=== PATIENT | male | born 1950 | race Caucasian/White ===

== ENCOUNTER 2025-04-06 18:57 | Emergency (ER) | payer OTHER, SELFPAY ==
[2025-04-06] VITALS (11 sets, daily range): BP systolic 111–142; BP diastolic 56–79; PULSE 75–96; RESP 12–20; TEMP 36.6; O2SAT 95–100; BMI 17.3
--- NOTE | 2025-04-06 19:19 | DI.RAD.S_ITS ---
PROCEDURE: XR CHEST 1V INDICATIONS: Chest Pain TECHNIQUE: One view of the chest was acquired. COMPARISON: None. FINDINGS: Surgical changes and devices: None. Lungs and pleura: Lungs are clear. No pleural effusions or pneumothorax. Mediastinum: Small amount of air in the thoracic esophagus. Mediastinal contours otherwise appear normal. Heart size is normal. Bones and chest wall: No suspicious bony lesions. Overlying soft tissues appear unremarkable. IMPRESSION: Mildly patulous thoracic esophagus. Otherwise, no acute cardiothoracic process. Dictated by: Darren Sterling M.D. on 04/06/2025 at 20:02 Approved by: Darren Sterling M.D. on 04/06/2025 at 20:03
--- NOTE | 2025-04-06 19:19 | EKG_ITS ---
[facility] [address] [address] Test Date: 2025-04-06 Pat Name: Celestino De La Torre Department: [facility] Room: Gender: Male [employer]: : 1950 Requested By: Order Number: [id number] Reading MD: Anthony Hi MD Measurements Intervals [place] Rate: 100 P: 49 MT: 172 QRS: 15 QRSD: 86 T: 79 QT: 356 QTc: 459 Interpretive Statements Normal sinus rhythm Electronically Signed On 04-07-2025 6:52:21 PDT by Anthony Hi MD
[2025-04-06 19:41] LABS: Add Manual Diff / Slide Review NO; Basophils Absolute Auto 100 /uL (0-100); Basophils Percent Auto 1.5 % (0-2); Eosinophils Absolute Auto 300 /uL (0-450); Eosinophils Percent Auto 5.3 % (2-4); Hematocrit 28.6 % (41-53); Hemoglobin 9.6 g/dL (13.5-17.5); Lymphocytes Absolute Auto 1800 /uL (1100-4500); Lymphocytes Percent Auto 27.3 % (25-40); Mean Corpuscular HGB Conc 33.7 % (30-36); Mean Corpuscular Hemoglobin 30.8 PG (26-34); Mean Corpuscular Volume 91.4 fL (80-100); Monocytes Absolute Auto 700 /uL (0-900); Monocytes Percent Auto 10.3 % (3-14); Neutrophils Absolute Auto 3600 /uL (1500-7000); Neutrophils Percent Auto 55.6 % (50-75); Platelet Count 193 X10^3/uL (150-400); Red Blood Cell Count 3.13 X10^6/uL (4.5-5.9); Red Cell Distribution Width 15.1 % (11.6-14.8); White Blood Cell Count 6.5 X10^3/uL (4.5-11.0)
[2025-04-06 19:48] LABS: INR 1.4 (0.9-1.3); Prothrombin Time 15.5 SECONDS (9.4-12.5)
[2025-04-06 19:50] LABS: PTT Partial Thromboplastin Tim 42 SECONDS (25.1-36.5)
[2025-04-06 19:52] LABS: Alanine Aminotransferase 28 IU/L (<50); Albumin 4.2 g/dL (3.5-5.0); Albumin Globulin Ratio 1.4 (1.0-2.8); Alkaline Phosphatase 78 U/L (38-126); Aspartate Aminotransferase 29 IU/L (17-59); BUN Creatinine Ratio 24.2 (6-22); Bilirubin Total 0.3 mg/dL (0.2-1.3); Blood Urea Nitrogen 36 mg/dL (9-20); Calcium 9.6 mg/dL (8.4-10.2); Carbon Dioxide 24 mmol/L (22-32); Chloride 99 mmol/L (98-107); Creatine Kinase 37 U/L (55-170); Estimated Glomerular Filt Rate 48 mL/min (>60); Globulin 2.9 g/dL (1.7-4.1); Glucose 255 mg/dL (70-99); HEMOLYSIS < 15 (0-50); Lactate (Lactic Acid) 2.9 mmol/L (0.7-2.1); Lipase 67 U/L (23-300); Potassium 4.8 mmol/L (3.4-5.1); Sodium 134 mmol/L (137-145); Total Protein 7.1 g/dL (6.3-8.2)
[2025-04-06 20:03] LABS: NT-proBNP (BNP-Adult 18+) 357 pg/mL (<450); Troponin I < 0.012 ng/mL (0.01-0.034)
[2025-04-06 21:12] LABS: Reflexed Lactate in 2 Hours Y
--- NOTE | 2025-04-06 21:36 | EKG_ITS ---
[facility] [address], [place] [address] Test Date: 2025-04-06 Pat Name: Celestino De La Torre Department: [facility] Room: Gender: Male [employer] Scribe: : 1950 Requested By: Order Number: [id number] Reading MD: Anthony Hi MD Measurements Intervals [place] Rate: 94 P: 52 GA: 176 QRS: 27 QRSD: 84 T: 81 QT: 370 QTc: 462 Interpretive Statements Normal sinus rhythm Electronically Signed On 04-07-2025 6:52:21 PDT by Anthony Hi MD
[2025-04-06 22:50] LABS: Lactate 2HR (Lactic Acid Rflx) 2.3 mmol/L (0.7-2.1)
[2025-04-06 23:03] LABS: Troponin I < 0.012 ng/mL (0.01-0.034)
[2025-04-07] VITALS: PULSE 82; O2SAT 97
[2025-04-07 00:01] VITALS: BP 128/82; PULSE 84; O2SAT 96
[2025-04-07 00:15] VITALS: BP 148/58; PULSE 78; RESP 13
--- NOTE | 2025-04-07 00:20 | ED.GENADULT ---
HPI - General Adult General Chief complaint: Dizziness Stated complaint: Dizziness/Recent Infection Time Seen by Provider: 04/07/25 00:20 Source: patient and EMS Mode of arrival: EMS History of Present Illness HPI narrative: 74-year-old male with a past medical history of diabetes, CVA on Eliquis comes into the ED from home via EMS for evaluation of multiple complaints. According to the patient he states that he initially called because he was checking his blood glucose and stated that he was worried that it was high, he states that few weeks ago his blood glucose was unreadable and required evaluation at outside hospital. He states that when he was checked for his blood glucose today it was normal, however according to EMS patient was hypotensive however here patient not hypotensive. He does state that he was feeling slight lightheaded dizziness whenever he stands up but states it has been ongoing for ?several years. Patient states that he did not want to come into the ED but was told that he would ? if he did not come. Denies any other symptoms at this time states that he feels completely normal. States the real reason he only called EMS was because he was worried about his blood sugars. Related Data Allergies Allergy/AdvReac Type Severity Reaction Status Date / Time Penicillins Allergy Verified 04/06/25 19:23 Review of Systems Review of Systems Narrative: General: Elevated blood sugar, Denies fever, chills, weight loss HEENT: Denies headache, eye drainage, eye irritation, head trauma, sore throat, voice change Cardiovascular: Denies any chest pain, palpitations, tachycardia Respiratory: Denies any shortness of breath, cough, wheeze, stridor GI/: Denies any abdominal pain, nausea, vomiting, diarrhea, bright red blood per rectum, melanotic stools, urinary frequency, urinary retention, dysuria, hematuria MSK: Denies any joint pain, muscle pains, swelling Skin: Denies any rashes, lesions, discoloration Neuro: Denies any headache, lightheadedness, dizziness, fainting, weakness Psych: Denies SI/HI Patient History tobacco type: smokeless tobacco Exam Narrative Exam Narrative: General: Cooperative, well-developed, not in acute distress HEENT: Normocephalic, atraumatic, PERRLA, normal sclera, eyelids normal Neck: Active full range of motion, atraumatic Chest: Normal to inspection, negative crepitus, no overlying erythema ecchymosis Respiratory: Normal respiratory effort, not in acute respiratory distress, clear to auscultation bilaterally negative cough, wheeze, tachypnea, rhonchi, rales Cardiology: Regular rate rhythm negative gallop, murmur, rubs GI/: No tenderness to palpation, soft, non rigid, normal to inspection, exam deferred MSK: Full active range of motion in all 4 extremities, atraumatic, no tenderness to palpation of any bony prominences Skin: No rashes or lesions noted Neuro: NIH of 0, Alert awake oriented x3, moves all 4 extremities spontaneously, cranial nerves intact, able to answer all questions appropriately follows commands appropriately Psych: Cooperative, negative suicidal or homicidal ideations Initial Vital Signs Initial Vital Signs: Vital Signs Temperature 97.8 F 04/06/25 19:20 Pulse Rate 93 H 04/06/25 19:20 Respiratory Rate 20 04/06/25 19:20 Blood Pressure 111/65 04/06/25 19:20 Pulse Oximetry 96 04/06/25 19:20 Oxygen Delivery Method Room Air 04/06/25 19:20 Course Orders Ordered: ED Orders 04/06/25 19:19 XR chest 1V Stat EKG-12 Lead Stat RT Consult Eval and Treat NOW 04/06/25 19:32 Complete Blood Count AUTO DIFF Stat Comprehensive Metabolic Panel Stat Lactate (Lactic Acid) Stat Lipase Stat Magnesium Stat NT-proBNP (BNP-Adult 18+) Stat PTT Partial Thromboplastin Jorge Stat Prothrombin Time INR Stat Troponin & CK Cardiac Panel Stat 04/06/25 21:36 EKG-12 Lead Stat 04/06/25 21:44 Troponin I Stat Discontinued Medications Aspirin (Aspirin 81 Mg Chew Tab) 324 mg PO NOW ONE Stop: 04/06/25 19:20 Last Admin: 04/06/25 21:59 Dose: Not Given Documented By: SB Vital Signs Vital signs: Vital Signs - 8 hr 04/06/25 19:20 04/06/25 21:41 04/06/25 21:47 Temperature 97.8 F Pulse Rate 93 H 95 H Respiratory Rate 20 Blood Pressure 111/65 122/75 Pulse Oximetry 96 100 Oxygen Delivery Method Room Air 04/06/25 21:47 04/06/25 22:00 04/06/25 22:00 Temperature Pulse Rate 96 H 83 Respiratory Rate 20 13 Blood Pressure 142/67 H Pulse Oximetry 100 97 Oxygen Delivery Method 04/06/25 22:15 04/06/25 22:15 04/06/25 22:30 Temperature Pulse Rate 82 79 Respiratory Rate 12 Blood Pressure 129/63 Pulse Oximetry 96 98 Oxygen Delivery Method Room Air 04/06/25 22:30 04/06/25 22:45 04/06/25 22:45 Temperature Pulse Rate 86 Respiratory Rate Blood Pressure 116/56 L 126/62 Pulse Oximetry Oxygen Delivery Method 04/06/25 23:00 04/06/25 23:00 04/06/25 23:15 Temperature Pulse Rate 83 Respiratory Rate Blood Pressure 136/79 135/67 Pulse Oximetry 95 Oxygen Delivery Method 04/06/25 23:15 Temperature Pulse Rate 83 Respiratory Rate Blood Pressure Pulse Oximetry 96 Oxygen Delivery Method Room Air Medical Decision Making Differential Diagnosis Differential Diagnosis: ACS, pneumonia, electrolyte abnormality, hyperglycemia, Lab Data 04/06/25 19:32 04/06/25 19:32 Labs: Lab Results 04/06/25 04/06/25 Range/Units 19:32 21:44 WBC 6.5 (4.5-11.0) X10^3/uL RBC 3.13 L (4.5-5.9) X10^6/uL Hgb 9.6 L (13.5-17.5) g/dL Hct 28.6 L (41-53) % MCV 91.4 (80-100) fL MCH 30.8 (26-34) PG MCHC 33.7 (30-36) % RDW 15.1 H (11.6-14.8) % Plt Count 193 (150-400) X10^3/uL Neut % (Auto) 55.6 (50-75) % Lymph % (Auto) 27.3 (25-40) % [place] % (Auto) 10.3 (3-14) % Eos % (Auto) 5.3 H (2-4) % Baso % (Auto) 1.5 (0-2) % Neut # (Auto) 3600 (4847-5353) /uL Lymph # (Auto) 1800 (8691-6705) /uL [place] # (Auto) 700 (0-900) /uL Eos # (Auto) 300 (0-450) /uL Baso # (Auto) 100 (0-100) /uL PT 15.5 H (9.4-12.5) SECONDS INR 1.4 H (0.9-1.3) APTT 42 H (25.1-36.5) SECONDS Sodium 134 L (137-145) mmol/L Potassium 4.8 (3.4-5.1) mmol/L Chloride 99 (98-107) mmol/L Carbon Dioxide 24 (22-32) mmol/L BUN 36 H (9-20) mg/dL Creatinine 1.49 H (0.66-1.25) mg/dL Estimated GFR 48 L (>60) mL/min BUN/Creatinine Ratio 24.2 H (6-22) Glucose 255 H (70-99) mg/dL Lactate 2.9 H 2.3 H (0.7-2.1) mmol/L Calcium 9.6 (8.4-10.2) mg/dL Magnesium 2.0 (1.6-2.3) mg/dL Total Bilirubin 0.3 (0.2-1.3) mg/dL AST 29 (17-59) IU/L ALT 28 (<50) IU/L Alkaline Phosphatase 78 (38-126) U/L Total Creatine Kinase 37 L (55-170) U/L Troponin I < 0.012 < 0.012 (0.01-0.034) ng/mL NT-Pro-B Natriuret Pep 357 (<450) pg/mL Total Protein 7.1 (6.3-8.2) g/dL Albumin 4.2 (3.5-5.0) g/dL Globulin 2.9 (1.7-4.1) g/dL Albumin/Globulin Ratio 1.4 (1.0-2.8) Lipase 67 (23-300) U/L Imaging Data Chest x-ray: Radiologist's Impression: [address] [address] XRay Report Signed Patient: Celestino De La Torre MR#: [id number] : 1950 Acct:[id number] Age/Sex: 74 / M Date of Service: 04/06/25 Loc: ED Accession Number: [id number] Procedure: XR chest 1V Ordering Provider: Celestino Reeder D.O. PROCEDURE: XR CHEST 1V INDICATIONS: Chest Pain TECHNIQUE: One view of the chest was acquired. COMPARISON: None. FINDINGS: Surgical changes and devices: None. Lungs and pleura: Lungs are clear. No pleural effusions or pneumothorax. Mediastinum: Small amount of air in the thoracic esophagus. Mediastinal contours otherwise appear normal. Heart size is normal. Bones and chest wall: No suspicious bony lesions. Overlying soft tissues appear unremarkable. IMPRESSION: Mildly patulous thoracic esophagus. Otherwise, no acute cardiothoracic process. ECG Data Interpretation: Initial EKG interpreted by ED physician sinus 100 beats per minute QTC [address] changes no STEMI Repeat EKG interpreted by ED physician sinus 94 beats per minute QTC [address] changes no STEMI MDM Narrative Medical decision making narrative: 74-year-old male with history of CVA on Eliquis diabetes presents to the emergency department from home from EMS for evaluation of high blood sugars. He states that he called EMS because his glucometer stated that his sugar was unreadable states that a few weeks ago he had similar issues and was sent to outside hospital due to the fact that he had elevated blood sugars. He states that his blood sugars and was normal by EMS but they state that his blood pressure was low, he states that he does have intermittent light-headedness whenever he attempts to stand however he states it has been ongoing for years, he states that he did not want to come into the ED but was told that he would ? if he did not. He is completely asymptomatic at this time. He states that he only called EMS because he wanted to check his blood sugars but they ?forced him to come in patient's lab work imaging unremarkable, patient's glucose 255, however patient not in DKA CO2 normal, EKG nonischemic in nature x2, troponin negative x2, chest x-ray without any acute cardiopulmonary abnormality. Patient was instructed to follow up with primary care and Cardiology in outpatient setting he verbalized understanding of this and agrees to being discharged home with outpatient follow up Discharge Plan Departure Patient Disposition: Home Clinical Impression: Hyperglycemia Instructions: DI for Hyperglycemia -- Adult Activity Restrictions/Additional Instructions: Please follow up with the Cardiology and your primary care doctor in outpatient setting Please read the discharge instructions sheet carefully and bring all papers to all doctor follow-up visits, as it may contain information that your doctor may want to see. Disease processes change and evolve, if your symptoms worsen or if you develop any new symptoms that are concerning to you please return for evaluation. Your evaluation today does not show any evidence of any life-threatening/serious illnesses requiring admission to the hospital or surgery. Please follow-up with your doctor for re-evaluation in approximately 1 day. Seek immediate medical attention for any worrisome symptoms. *If you do not have a primary care provider please contact the [facility] Resource line at [phone]. They will ask some questions about your medical history and help get you set up with a doctor in the community. Referrals: Miscellaneous,Doctor, MD [Primary Care Provider] - Stand Alone Forms: Patient Portal/API/Survey
[2025-04-07 00:30] VITALS: BP 166/75; PULSE 80; RESP 12; O2SAT 96
[2025-04-07 00:46] VITALS: BP 151/67; PULSE 77; RESP 13; O2SAT 96
== END 2025-04-07 01:04 | disposition home or self-care (01) ==
PROVIDERS: Emergency Provider Student in an Organized Health Care Education/Training Program
DX: E11.65 Type 2 diabetes mellitus with hyperglycemia (principal)
CPT/HCPCS: 71045; 80053; 82550; 83605; 83690; 83735; 83880; 84484; 85025; 85610; 85730; 93005; 93010; 99283; 99284